=== PATIENT | male | born 1980 | race Caucasian/White ===

== ENCOUNTER 2020-08-03 17:35 | Inpatient (IN) ==
[2020-08-03 18:46] LABS: Basophils # 0.1 K/mcL (0.0-0.2); Basophils % 0.6 %; Eosinophils # 0.2 K/mcL (0.0-0.6); Eosinophils % 1.5 %; Hematocrit 42.8 % (37.5-50.1); Hemoglobin 14.7 g/dL (12.9-16.9); Immature Granulocytes % 0.2 % (0-4); Lymphocytes # 3.2 K/mcL (0.6-4.6); Lymphocytes % 26.1 %; Mean Corpuscular HGB Conc 34.3 g/dL (31.6-35.5); Mean Corpuscular Hemoglobin 31.5 pg (28.0-33.3); Mean Corpuscular Volume 91.6 fL (83.0-100.0); Monocytes # 0.8 K/mcL (0.0-1.3); Monocytes % 6.6 %; Platelet Count 260 K/mcL (140-400); Red Blood Count 4.67 M/mcL (4.19-5.50); Red Cell Distribution Width 14.4 % (11.5-14.5); White Blood Count 12.3 K/mcL (4.3-11.1)
[2020-08-03 18:48] LABS: Estimated Average Glucose 120 mg/dl
[2020-08-03 19:06] LABS: Acetaminophen < 10 mcg/mL (10-20); BUN/Creatinine Ratio 10 (6-26); Blood Urea Nitrogen 9 mg/dL (6-20); Carbon Dioxide 26 mEq/L (23-29); Chloride 108 mEq/L (98-107); Cholesterol 192 mg/dL (< 200); Ethanol < 10 mg/dL (Less than 10); Glucose 96 mg/dL (70-105); HDL Cholesterol 32 mg/dL (40-59); LDL Cholesterol,Calculated 113 mg/dL (< 100); Osmolality,Calculated 289 (280-300); Potassium 3.7 mEq/L (3.5-5.1); Salicylate < 2.5 mg/dL (15.0-30.0); Sodium 140 mEq/L (136-145); Triglycerides 235 mg/dL (< 150); eGFR For African Americans > 60 (> 60); eGFR For Non-African Americans > 60 (> 60)
[2020-08-03 19:58] LABS: Bilirubin,Urine Negative (Negative); Blood,Urine Negative (Negative); Clarity,Urine Clear (Clear); Color,Urine Light-Yellow (Yellow); Glucose,Urine (UA) Normal (Normal); Ketones,Urine Negative (Negative); Leukocyte Esterase,Urine Negative (Negative); Nitrite,Urine Negative (Negative); PH,Urine 6.5 pH Units (5.0-8.0); Protein,Urine Negative (Neg-Trace); Specific Gravity,Urine 1.017 (1.010-1.025); Urobilinogen,Urine Normal (Normal)
[2020-08-03 20:09] LABS: Amphetamine Screen,Urine Negative ng/mL (Cutoff=1000); Barbiturate Screen,Urine Negative ng/mL (Cutoff=200); Benzodiazepines Screen,Urine Negative ng/mL (Cutoff=200); Cannabinoid Screen,Urine Negative ng/mL (Cutoff = 50); Cocaine Screen,Urine Negative ng/mL (Cutoff= 300); Opiate Screen,Urine Negative ng/mL (Cutoff=300); Phencyclidine Screen,Urine Negative ng/mL (Cutoff=25)
[2020-08-03] MEDS ORDERED: *HR* LORazepam 1 MG TABLET PO ONE (20:37)
[2020-08-03] MEDS ORDERED: Haloperidol Lactate 5 MG/ML VIAL IM PRN (21:12)
[2020-08-03] MEDS ORDERED: *HR* LORazepam 1 MG TABLET PO PRN (21:12)
[2020-08-03] MEDS ORDERED: traZODone 50 MG TABLET PO PRN (21:12)
[2020-08-03] MEDS ORDERED: *HR* LORazepam 2 MG/ML VIAL IM PRN (21:12)
[2020-08-03] MEDS ORDERED: haloperidoL 5 MG TABLET PO PRN (21:12)
[2020-08-03] MEDS: Nicotine 21 MG PATCH.TD24 TD SCH (22:06)
[2020-08-04] MEDS: Nicotine 21 MG PATCH.TD24 TD SCH (08:17)
[2020-08-04] MEDS ORDERED: Gadolinium Contrast Agent (WT Based) IV PRN (11:59)
[2020-08-04] MEDS: BuPROPion XL (24 HR) 150 MG TABLET PO SCH (11:59)
[2020-08-04] MEDS: ARIPiprazole 5 MG TABLET PO SCH (20:42)
[2020-08-04] MEDS: Nicotine 2 MG GUM BC PRN (20:42)
[2020-08-05] MEDS: Nicotine 2 MG GUM BC PRN ×4 (07:56→19:01)
[2020-08-05] MEDS: BuPROPion XL (24 HR) 150 MG TABLET PO SCH (08:57)
[2020-08-05] MEDS: ARIPiprazole 5 MG TABLET PO SCH (21:52)
[2020-08-06] MEDS: Nicotine 2 MG GUM BC PRN (07:54)
[2020-08-06] MEDS: BuPROPion XL (24 HR) 150 MG TABLET PO SCH (10:11)
[2020-08-06 10:28] VITALS: BP 123/86
== END 2020-08-06 13:35 | disposition home or self-care (01) | DRG 885 ==
LOC: EMEROOARM 17:35 → 1ANU 21:11
PROVIDERS: ADMIT Psychiatry & Neurology Forensic Psychiatry; ATTEND Psychiatry & Neurology Forensic Psychiatry